=== PATIENT | female | born 1980 | race Caucasian/White ===

== ENCOUNTER 2016-10-29 14:17 | Day surgery (SDC) | payer OTHER ==
[~2016-10-29] VITALS: Ht 160 cm; Wt 64.9 kg
--- NOTE | 2016-10-29 16:13 | NUR ---
PT ADMITTED FOR LAP RUDY. PT CONFIRMED PLANNED PROCEDURE, HER NAME, NPO STATUS, MEDICATIONS AND ALLERGIES. 4 UNSUCCESSFUL ATTEMPTS TO ESTABLISH IV ACCESS BY 2 RNS. PT NOW HAS 22G IV CATHETER IN LEFT WRIST. PAIN LEVEL DESCRIBED TOLERABLE, DENIES NAUSEA. WARM BLANKETS FOR COMFORT.
--- NOTE | 2016-10-29 16:44 | NUR ---
PT REPORTS 7/10 RUQ, LOWER RIGHT CHEST PAIN. MEDICATED WITH MORPHINE 2 MG IV FOR PAIN.
--- NOTE | 2016-10-29 16:59 | NUR ---
PT REPORTS PAIN UNCHANGED AFTER MORPHINE [address] MICHEL WAS HERE AND EXAMINED PT, QUESTIONS ANSWERED.
[2016-10-29] MEDS ORDERED: FLUOXETINE HCL20 MG PO (17:06)
--- NOTE | 2016-10-29 19:05 | CONSULTATION REPORT ---
DATE OF CONSULTATION: 10/29/2016 CHIEF COMPLAINT: 1. Abdominal pain HISTORY OF PRESENT ILLNESS: The patient is a 36-year-old woman who has had intermittent mild symptoms of abdominal pain in right upper quadrant, going on for the last month. Yesterday evening, she developed severe, unremitting acute abdominal pain which has persisted until today, and she was seen in acute care clinic on an emergent basis, and a surgical consultation was requested. An ultrasound demonstrated a gallstone in the neck of the gallbladder. MEDICAL/SURGICAL HISTORY: Medical history of morbid obesity. Past surgeries: Sleeve resection of the stomach in 04/2016. This was done by Dr. Hidalgo and resulted in a 78 pound weight loss. Apparently a hiatal hernia was also corrected. MEDICATIONS: 1. ALLERGIES: 1. AMOXICILLIN 2. AUGMENTIN, CAUSING A RASH. 3. VICODIN CAUSING NAUSEA AND VOMITING. Note, the patient has been able to tolerate Percocet without problems. 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 She takes 1 glass of wine per day. She does not use any other drugs. She is not a smoker. She is a former smoker. The patient is currently . She is G1, P1. She has 1 son. She does not use contraceptives. Her last normal menstrual period was about 2 weeks ago. FAMILY HISTORY: Mother and father are both alive and well. The patient reports no other hereditary diseases or cancers. REVIEW OF SYSTEMS: A multipoint review of systems was obtained and is documented in the office notes. The patient has been feeling poorly, but the remainder of a 12- point review of systems is negative. PHYSICAL EXAMINATION: VITAL SIGNS: Height is 63 inches, weight 142 pounds. GENERAL: The patient is alert and cooperative. Mental status is normal. She is oriented to time and place. Her motor and sensory exam demonstrates normal symmetric movement of extremities and no deficits. HEENT: Her ears and nose demonstrate no gross external lesions. Eyes are equal. She is anicteric. NECK: Without palpable masses or thyromegaly. CHEST: Clear, without wheeze or rales. HEART: Regular, without murmur or gallop. ABDOMEN: Reveals localized tenderness and guarding in the right upper quadrant. There is no ascites. Bowel sounds are active. The abdomen is nondistended. There are well -healed trocar sites are visible on the abdomen. IMPRESSION: 1. Acute cholecystitis PLAN: I recommend the patient undergo an urgent laparoscopic cholecystectomy with cholangiography. I talked to the patient and her about the nature of this operation as well as alternatives, benefits and risks. Risks discussed included infection, bleeding, scars, pain, damage to local structures, possible common duct stones, possible postoperative pancreatitis, and others. The patient would like to proceed with surgery as described to her.
--- NOTE | 2016-10-29 19:16 | NUR ---
PATIENT ID AND PROCEDURE VERIFIED UPON ARIVAL TO THE OR TABLE. PT PROTECTED WITH LEAD PADS WHILE ON THE OR TABLE.
[2016-10-29] MEDS ORDERED: PERCOCET1 TA1 PO (19:43)
--- NOTE | 2016-10-29 19:45 | Provider's Discharge Care Plan ---
Problem, Goal, Plan Problem List 1. Acute cholecystitis
--- NOTE | 2016-10-29 19:45 | Provider's Discharge Care Plan ---
Problem, Goal, Plan Problem List 1. Acute cholecystitis
--- NOTE | 2016-10-29 20:24 | DIAGNOSTIC IMAGING REPORT ---
PROCEDURE: XR INTRAOPERATIVE LAP RUDY INDICATION: Surgery. Cholecystectomy. TECHNIQUE: Study performed and contrast injected by Dr. Bonifacio Parsons Fluoroscopy time 10 seconds (9.7 mGy). COMPARISON: None. FINDINGS: Two AP C-arm views. Common duct is normal and there is no evidence of obstruction. IMPRESSION: 1. Negative intraoperative cholangiogram.
[2016-10-29 20:58] VITALS: BP 115/68
--- NOTE | 2016-10-29 21:06 | OPERATIVE REPORT ---
DATE OF SURGERY: 10/29/2016 SURGEON: Bonifacio Parsons MD SUPERVISING LAW ENFORCEMENT ANALYST: Maya Ford III, MD PREOPERATIVE DIAGNOSIS: 1. Cholelithiasis with acute cholecystitis POSTOPERATIVE DIAGNOSIS: 1. Cholelithiasis with acute cholecystitis PROCEDURE PERFORMED: 1. Laparoscopic cholecystectomy, cholangiography ANESTHESIA: General. COMPLICATIONS: No intraoperative complications were encountered. INDICATIONS: The patient is a 36-year-old woman with a persistent attack of right upper quadrant abdominal pain and cholelithiasis. SURGICAL TECHNIQUE: The patient was taken to the operating room where a general anesthetic was administered and patient prepped and draped in the usual sterile fashion. A local anesthetic of 0.5% Marcaine with epinephrine was used at each site and the patient received an orogastric tube, IV antibiotics, and sequential compression devices. An infraumbilical incision was made and a Veress needle used to insufflate the abdominal cavity. Visualization was obtained. There were a few adhesions from previous surgery and the right upper quadrant demonstrated a distended and edematous gallbladder. The gallbladder was elevated and cystic duct isolated at the neck of the gallbladder. A clip was placed and a fluoroscopic cholangiogram carried out, which revealed free flow into duodenum and no filling defects. The cystic duct was doubly clipped and divided, as was the cystic artery, and the gallbladder stripped from the gallbladder fossa using electrocautery. It was placed in a specimen bag and brought to the upper midline trocar site where it was morcellated and extracted. Irrigation was used and care was taken to examine the gallbladder bed for evidence of bile leakage or bleeding. All was normal after irrigation and cleansing. Additional Marcaine was instilled, gas was evacuated, and the midline skin sites closed with interrupted subcuticular 4-0 Vicryl suture. Steri-Strips and dressings were applied and the patient left in stable condition.
[2016-10-29 21:25] VITALS: BP 110/70
--- NOTE | 2016-10-29 21:36 | NUR ---
PT TRASPORTED TO ACUTE CARE ON A GURNEY. PRIOR D/C FROM PACU PT IS AWAKE AND ALERT. PT DENIES NAUSEA. PT COMPLAINS OF A SHARP PAIN IRRADIATING TO HER BOTH SHOULDER AND BACK PAIN. PT STATES THAT HER PAIN IS 6/10 ON A SCALE FROM 0-10. ABDOMEN IS SOFT, DRESSING IS CLEAN AND DRY. VSS. PT PRESENT IN PACU. MD TALKED TO PT IN PACU. REPORT GIVEN TO NATALIA BLANCHARD.
[2016-10-29 21:43] VITALS: BP 121/54
--- NOTE | 2016-10-29 22:10 | NUR ---
PT ARRIVED AT 2049 VIA GURNEY FROM THE PACU. VSS. PT WAS C/O PAIN AT 10/10 PAIN BUT FALLING ASLEEP WHILE TALKING TO THIS RN. AMBULATED IND AROUND UNIT 2X W/ THIS RN AND AT HER SIDE. PAIN MEDS GIVEN AND PAIN LVL WENT TO A 6/10.
--- NOTE | 2016-10-29 22:14 | NUR ---
QUESTIONS AND CONCERNS ANSWERED. RX DISCUSSED. VSS. AFEBRILE. NO N/V. IV DC'D INTACT. PAPERWORK SIGNED. PT DC'D AT 2220 VIA WC W/ BRIM PLATER AT SIDE.
[2016-11-07] MEDS ORDERED: TYLENOL EXTRA500 MG PO (12:34)
== END 2016-10-29 22:14 | disposition home or self-care (01) ==
LOC: SDC SRH 14:17 → SCU SRH 14:17 → SDC SRH 16:00 → OR SRH 16:00 → ACUTE2 SRH 19:52 → SDC SRH 22:14
PROVIDERS: Surgery
PROC: BF131ZZ Fluoroscopy of Gallbladder and Bile Ducts using Low Osmolar Contrast (ICD-10-PCS; principal; 2016-10-29 16:00)
PROC: 0FT44ZZ Resection of Gallbladder, Percutaneous Endoscopic Approach (ICD-10-PCS; principal; 2016-10-29 16:00)
DX: K80.12 Calculus of gallbladder with acute and chronic cholecystitis without obstruction (principal); K66.0 Peritoneal adhesions (postprocedural) (postinfection); Z98.84 Bariatric surgery status

== ENCOUNTER 2016-11-06 10:49 | Outpatient (CLI) | payer OTHER ==
[~2016-11-06 10:49] MED LIST: FLUOXETINE HCL20 MG PO; PERCOCET1 TA1 PO
[2016-11-07] MEDS ORDERED: TYLENOL EXTRA500 MG PO (12:34)
--- NOTE | 2016-11-09 16:33 | DIAGNOSTIC IMAGING REPORT ---
PROCEDURE: US ABDOMEN ULTRASOUND-COMPLETE INDICATION: Abdominal pain. Post cholecystectomy (10/29/2016). TECHNIQUE: Collins scale and color Doppler sonographic images of the abdomen were obtained. COMPARISON: Comparison is made intraoperative cholangiogram on 10/29/2016, and prior outside studies from [facility] on 10/31/2016 (nuclear medicine biliary scan, CT abdomen pelvis, abdominal radiographs, and reports of MRI abdomen MRCP - - images unavailable). FINDINGS: Status post cholecystectomy. No evidence of fluid in the gallbladder fossa, although there is a small amount of upper abdominal ascites. Common duct is normal (5 mm). Liver, spleen, pancreas, bilateral kidneys (right 10.4 cm, left 10.3 cm), and aorta are normal. There is a small to moderate amount of free fluid in the lower ventral pelvis. IMPRESSION: 1. Status post cholecystectomy. 2. Small to moderate amount of abdominal and pelvic ascites. Findings are consistent biliary leak. 3. Findings discussed with Dr. Parsons.
== END 2016-11-06 23:00 ==
LOC: US SRH 10:49
DX: R10.9 Unspecified abdominal pain (principal); Z90.49 Acquired absence of other specified parts of digestive tract
CPT/HCPCS: 90074; 90100; 91643; 92235; 95059

== ENCOUNTER 2016-11-08 09:52 | Inpatient (IN) | payer OTHER ==
[~2016-11-08] VITALS: Ht 160 cm; Wt 65.6 kg
[2016-11-08] VITALS (9 sets, daily range): BP systolic 81–113; BP diastolic 47–80
[~2016-11-08 09:52] MED LIST changes: +TYLENOL EXTRA500 MG PO
--- NOTE | 2016-11-08 12:59 | OPERATIVE REPORT ---
DATE OF SURGERY: 11/08/2016 SURGEON: Bonifacio Parsons MD PREOPERATIVE DIAGNOSIS: Bile peritonitis POSTOPERATIVE DIAGNOSIS: Duct of Luschka bile leak PROCEDURES PERFORMED: 1. diagnostic laparascopy with peritoneal lavage and drain placement ANESTHESIA: General. INDICATIONS: The patient is a 36-year-old woman who underwent a laparoscopic cholecystectomy the previous week. The patient had persistent pain after surgery and after all studies were reviewed, this appeared to be a bile leak, based on HIDA scan and persistent fluid. SURGICAL TECHNIQUE: The patient was taken to the operating room, where a general anesthetic was administered and the patient prepped and draped in the usual sterile fashion. A local anesthetic of 0.5% Marcaine with epinephrine was used at each incision site. A Veress needle was used to insufflated and the 10 mm cannula was placed in the umbilicus. Two 5 were placed in the upper abdomen. Visualization demonstrated bile pooled both in the pelvis as well as in the perihepatic space. There was a gelatinous green colored proteinaceous exudate in the right upper quadrant. A suction cannula was used to remove all the bile and the proteinaceous material as well as to rinse out the last traces of bile. Examination of the gallbladder bed demonstrated that there was a yellow spot about [address] the gallbladder bed that seemed to be the source of the bile. There was no bile staining or evidence of clip disruption down near the cystic duct or common duct. After clearing all bile, the flat 7 mm silicone drain was placed with the drain underneath the liver bed and brought out through the right lateral trocar site. It was sutured to the skin with 3-0 nylon suture and placed to bulb suction. Additional Marcaine was instilled, gas was evacuated, and the midline trocar sites closed at the skin with interrupted subcuticular 4-0 Vicryl suture and Steri-Strips. Dressings were placed. The patient left in stable condition. No intraoperative complications were encountered.
[2016-11-09 02:17] VITALS: BP 92/55
[2016-11-09 06:49] VITALS: BP 95/57
[2016-11-09 10:25] VITALS: BP 100/54
[2016-11-09 14:15] VITALS: BP 103/62
[2016-11-09 18:00] VITALS: BP 113/59
[2016-11-09 22:12] VITALS: BP 107/57
[2016-11-10 02:08] VITALS: BP 93/66
[2016-11-10 07:36] VITALS: BP 100/59
[2016-11-10 11:55] VITALS: BP 100/66
[2016-11-10 14:17] VITALS: BP 101/71
[2016-11-10 18:28] VITALS: BP 106/65
[2016-11-10 22:45] VITALS: BP 109/60
[2016-11-11 02:08] VITALS: BP 98/61
[2016-11-11 07:35] VITALS: BP 94/56
[2016-11-11 11:25] VITALS: BP 109/67
[2016-11-11 14:38] VITALS: BP 103/72
[2016-11-11 19:18] VITALS: BP 106/64
[2016-11-11 22:23] VITALS: BP 96/56
[2016-11-12 02:15] VITALS: BP 102/68
[2016-11-12 08:15] VITALS: BP 109/66
[2016-11-12 14:21] VITALS: BP 99/58
[2016-11-12 18:11] VITALS: BP 120/77
[2016-11-12 22:21] VITALS: BP 102/60
[2016-11-13] VITALS (7 sets, daily range): BP systolic 94–115; BP diastolic 48–68
--- NOTE | 2016-11-13 17:57 | Progress Note ---
Subjective General Pt. feels generally weak and does not feel like going home yet with her drain. She is tolerating a diet. Physical Exam Vital Signs / I&Os Vital Signs Date Time Temp Pulse Resp B/P Pulse O2 O2 Flow FiO2 Ox Delivery Rate 11/13 1624 0.0 11/13 1435 98.2 74 18 115/68 98 Room Air 11/13 1354 98.4 72 20 101/48 97 Room Air 0.0 11/13 1047 97.9 78 18 107/58 96 Room Air 11/13 0819 97.9 65 18 99/64 96 Room Air 0.0 11/13 0232 98.1 64 16 105/68 96 Room Air 11/12 2221 98.1 72 20 102/60 96 Room Air 11/12 1811 98.2 75 20 120/77 100 Room Air I&O 11/12 0800 11/12 1600 11/13 0000 Intake Total 620 900 Output Total 1994 2059 800 Balance -1915 -1440 100 General Appearance Alert, Oriented X3, Cooperative HEENT Normal exam Abdomen Normal exam, Normal bowel sounds (bilious LISSETTE drainage.) Neurological Normal gait, Normal speech Assessment and Plan Problem List 1. Acute cholecystitis 2. Bile peritonitis Plan continue drainage, I am getting her ready for discharge and outpt. drain management.
[2016-11-14 02:30] VITALS: BP 101/57
[2016-11-14 07:22] VITALS: BP 103/59
[2016-11-14 10:17] VITALS: BP 104/66
[2016-11-14 14:20] VITALS: BP 103/58
--- NOTE | 2016-11-14 15:04 | DIAGNOSTIC IMAGING REPORT ---
PROCEDURE: CT ABDOMEN/PELVIS W/O CONTRAST INDICATION: Follow bile leak. TECHNIQUE: Noncontrast axial images with sagittal and coronal reformations. Intravenous contrast was not utilized due to lack of IV access. COMPARISON: Comparison is made abdominal ultrasound (11/06/2016) and outside CT pelvis (10/31/2016). FINDINGS: ABDOMEN: Status post cholecystectomy (surgical clips). There is interval placement of right subhepatic Eh-Wood drain. There is mild increase in free fluid in the subhepatic space and in the right lateral mesentery. There is no evidence of ductal dilation. Liver, spleen, pancreas, kidneys, and aorta are normal. Status post gastric sleeve procedure. Bowel pattern is normal, including appendix. There is moderate of bibasilar atelectasis with air bronchograms. PELVIS: Moderate increase in moderate amount of free fluid in the pelvis. Uterus and adnexal structures are normal. IMPRESSION: 1. Status post cholecystectomy. 2. Interval placement of right subhepatic drain. 3. Mild increase in small amount of fluid in the upper abdomen with moderate increase in free fluid in the pelvis. Findings are compatible with biliary leak. 4. Moderate bibasilar atelectasis with air bronchograms. 5. Findings discussed with Dr. Parsons. All CT scans at this facility use dose modulation, iterative reconstruction, and/or weight-based dosing when appropriate to reduce radiation dose to as low as reasonably achievable.
[2016-11-14 18:12] VITALS: BP 102/68
[2016-11-14 22:38] VITALS: BP 108/72
[2016-11-15] VITALS (7 sets, daily range): BP systolic 86–114; BP diastolic 52–72
[2016-11-16 02:49] VITALS: BP 107/63
[2016-11-16 07:41] VITALS: BP 112/62
[2016-11-16 11:53] VITALS: BP 104/58
--- NOTE | 2016-11-16 14:06 | PROGRESS NOTE ---
DATE OF SERVICE: 11/16/2016 ATTENDING PHYSICIAN/PROVIDER: Bonifacio Parsons MD SUBJECTIVE: I am dictating this note to describe our interaction today. The patient is a 36-year-old woman. She underwent a laparoscopic cholecystectomy a couple weeks ago, which was unremarkable with a normal cholangiogram. Since then, she presented to the [facility] and a number of tests were done and the patient was sent home. She returned to the clinic and continues to complain of abdominal pain. I ordered an ultrasound. At that point, there was excess fluid in the abdomen and Dr. Silvestre reviewed all studies and appeared to show that she had a bile leak on a HIDA scan. She was taken to surgery on 11/08/2016 for diagnostic laparoscopy and she underwent peritoneal lavage with the finding of bile peritonitis. A yellow spot in the bed of the gallbladder was found and a drain was placed at that location draining what was most likely a duct of Luschka. Postoperatively, the patient had bile output through the drain, which went up when the patient's diet was advanced and seemed to be appropriately taking care of her problems. The main problem however was not abdominal situation, but the pain control, which initially was treated with conventional pain medication. Over time, the patient failed to improve on the pain side. She did develop bowel sounds and showed no abdominal distention, but the pain seemed to be excessive for the amount of time after surgery. A repeat CT scan was done on 11/14/2016, and this showed there is still some fluid in the abdomen and some basilar atelectasis from hypoventilation. This was felt to be compatible with the previous diagnosis of biliary leak, even though the Eh-Wood drain seemed to be producing quite adequately. Her Eh-Wood drainage for the last 4 days was 612, 410, 620 and 250 and today she has drained about 222. This appears to reflect her patterns of eating and does seem appropriate for a reasonably complete bile removal from the site of leak. Her lab tests up till now have shown normalization of electrolytes and a bilirubin was maximally 1.5 New labs were ordered as of today. I talked to the patient as she was quite dissatisfied with her pain control. I have attempted to try to control her pain using a reduced amount of narcotic in order to not get her on a habituating pain medication, which will simply confuse the issue. At this point, she has been on about 2 weeks of narcotics, which could lead to narcotic withdrawal as a significant contributor to her pain. Instead we have used a combination of Celebrex as an NSAID and substituted out a Tylenol for one of the Percocets as well as offered her a benzodiazepine at bedtime to help her get through the night. She made it through yesterday with this, but was unhappy today and wanted more in the way of narcotic pain control. I explained to her that this would confuse the issue even further. IMPRESSION: Bile peritonitis with delayed resolution of symptoms. This may reflect incomplete diversion of bile using the Eh-Wood drain but could also reflect some degree of habituation with pain medication. PLAN: I will repeat lab tests today and I explained to the patient that we will try to get by with combined medication pain control. If this works, then her pain should gradually diminish over the next day or two and perhaps she could go home under those circumstances. If, however, the pain remained at the same elevated level that requires ongoing narcotic use, then I would favor obtaining an ERCP and possible common bile duct stenting. We should decide this in the next 48 hours as we continue to observe the clinical situation and the drain output. If at that point on Saturday things are still in limbo, then I will arrange for the ERCP and possible stenting and contact the appropriate people for this procedure to occur probably on Saturday. The patient appeared satisfied with this game plan, and we will see how things go during the next 24 hours.
[2016-11-16 14:24] VITALS: BP 104/69
[2016-11-16 18:23] VITALS: BP 109/66
[2016-11-16 22:15] VITALS: BP 106/61
[2016-11-17 01:40] VITALS: BP 108/63
[2016-11-17 06:35] VITALS: BP 110/68
[2016-11-17 11:03] VITALS: BP 108/66
[2016-11-17 14:39] VITALS: BP 99/62
[2016-11-17 18:24] VITALS: BP 102/66
[2016-11-17 22:54] VITALS: BP 104/64
[2016-11-18 02:41] VITALS: BP 99/66
[2016-11-18 06:57] VITALS: BP 112/64
[2016-11-18 12:01] VITALS: BP 99/58
[2016-11-18] MEDS ORDERED: PERCOCET1 TA1 PO (12:24)
--- NOTE | 2016-11-18 12:47 | Provider's Discharge Care Plan ---
Problem, Goal, Plan Problem List 1. Acute cholecystitis 2. Bile peritonitis Instructions: follow up in office for drain removal
--- NOTE | 2016-11-18 12:47 | Provider's Discharge Care Plan ---
Problem, Goal, Plan Problem List 1. Acute cholecystitis 2. Bile peritonitis Instructions: follow up in office for drain removal
--- NOTE | 2016-11-22 15:23 | DISCHARGE SUMMARY ---
ADMIT DATE: 11/12/2016 DISCHARGE DATE: 11/18/2016 DISCHARGE DIAGNOSIS: 1. duct of Luschka bile leak HOSPITAL COURSE: The patient is a 36-year-old woman who underwent a previous uneventful laparoscopic cholecystectomy, but presented with signs of persistent abdominal pain and evidence of a bile leak on HIDA scan. She underwent surgery on 11/08/2016 where a laparoscopic cleanout was done and a Eh-Wood drain placed in her gallbladder bed. Postoperatively, she had bilious output as expected from the drain. She had problems with pain control initially, which was gradually tailored to suit her needs. Her diet was resumed and at that point, bilious output picked up in volume, but then began dropping off again. Because of pain control issues, the patient was kept and her medical therapy adjusted until things were comfortable without excessive use of narcotics. She was discharged on postoperative day #10, at which time she was afebrile with diminishing bile production from the drain and with normalization of her abdominal findings. Repeat bilirubin showed no signs of icterus or ongoing worrisome gastrointestinal findings. DISCHARGE INSTRUCTIONS/MEDICATIONS: per discharge orders
== END 2016-11-18 14:25 | disposition home or self-care (01) | DRG 393 ==
LOC: OR SRH 09:52 → OB SRH 09:54 → OR SRH 11:30 → ACUTE2 SRH 14:06 → OR SRH 11-09 15:20 → ACUTE2 SRH 11-12 08:45
PROVIDERS: ADMIT Surgery
PROC: 3E1M38Z Irrigation of Peritoneal Cavity using Irrigating Substance, Percutaneous Approach (ICD-10-PCS; principal; 2016-11-08 11:30)
DX: K91.89 Other postprocedural complications and disorders of digestive system (principal); K65.3 Choleperitonitis; Z98.84 Bariatric surgery status

== ENCOUNTER 2016-11-21 11:06 | Outpatient (CLI) | payer OTHER | END 2016-11-21 23:00 | LOC: LAB SRH 11:06 | DX: R19.7 Diarrhea, unspecified (principal) | CPT/HCPCS: 90112 ==